=== PATIENT | female | born 1950 | race Caucasian/White ===

== ENCOUNTER 2018-05-23 08:31 | Inpatient (IN) ==
--- NOTE | 2018-04-25 12:10 | PAT Medication Instructions ---
Medication Instructions Date of Service April 25, 2018 Home Medications amlodipine 5 mg PO QAM hydrochlorothiazide 25 mg PO QAM meloxicam [Mobic] 15 mg PO DAILY PRN metoprolol succinate 50 mg PO QAM pantoprazole 40 mg PO DAILY PRN simvastatin 40 mg PO PM ASK your surgeon for instructions meloxicam [Mobic] 15 mg PO DAILY PRN DO NOT take the morning of surgery hydrochlorothiazide 25 mg PO QAM Take morning of surgery With a small sip of water, OTHERWISE NOTHING TO EAT OR DRINK AFTER MIDNIGHT: amlodipine 5 mg PO QAM metoprolol succinate 50 mg PO QAM pantoprazole 40 mg PO DAILY PRN (if needed) Take evening before surgery pantoprazole 40 mg PO DAILY PRN (if needed) simvastatin 40 mg PO PM Other Notes If you have any questions please call us at [phone] or [phone] or [phone] or [phone]
--- NOTE | 2018-04-25 12:13 | Anesthesiology Consultation ---
Date of Service April 25, 2018 Assessment & Plan (1) Encounter for pre-operative examination: Plan: - History of glidescope intubation= Left TKA= 03/16/11= unable to get CSF with SAB--> switched to GA; glidescope # 3 at [facility] Chart Review Chart Review: Acceptable Risk for Surgery and Patient seen in Pre Admission Testing Teaching & Discussion Pre-Anesthesia Teaching/Discussion Notes: Instructed NPO after midnight before surgery,except medications with 15 cc of water. Medication instructions provided according to the PAT guidelines. History Surgery Operation Date: 05/23/18 07:15 Proposed Procedures p Left Knee Poly Exchange - Daniel Paniagua DO Height/Weight Height: 5 ft 4 in Weight: 92.8 kg Allergies Allergy/AdvReac Type Severity Reaction Status Date / Time No Known Allergies Allergy Verified 04/13/18 09:46 Medications Home Medications Medication Instructions Recorded Confirmed Last Taken amlodipine 5 mg PO QAM 04/13/18 04/13/18 Unknown hydrochlorothiazide 25 mg PO QAM 04/13/18 04/13/18 Unknown meloxicam [Mobic] 15 mg PO DAILY PRN 04/13/18 04/13/18 Unknown metoprolol succinate 50 mg PO QAM 04/13/18 04/13/18 Unknown pantoprazole 40 mg PO DAILY PRN 04/13/18 04/13/18 Unknown simvastatin 40 mg PO PM 04/13/18 04/13/18 Unknown Past Medical History Medical History History of difficult intubation LEFT TKA= 03/16/11= unable to get CSF with SAB--> switched to GA; glidescope # 3 at [facility] Cancer SKIN GERD (gastroesophageal reflux disease) CONTROLLED (KNOWN FOOD TRIGGERS) High cholesterol Hypertension Obesity Past Surgical History Surgical History Hx laparoscopic cholecystectomy Hx of total knee replacement B/L Past Anesthesia History No Hx of Anesthesia Complications (EXCEPT PONV), Difficult Airway (LEFT TKA= unable to get CSF with SAB--> switched to GA; glidescope # 3 at [facility]) and No Family Hx of Anesthesia Complications Patient states no PONV after cholecystectomy in 2016 in which patient was given post-op zofran and promethazine which she states she had a good response to History of PONV Yes Motion Sickness Screening History of Motion Sickness: No Social History Smoking Status: Never smoker Hx Alcohol Use: No Hx Substance Use: No Exercise / Class Metabolic Activity II 4-5 Yardwork/Stairs/Walk up hill Review of Systems Reflux controlled. Patient denies chest pain, shortness of breath, dyspnea on exertion, cough, wheezing, palpitations. Physical Exam Vital Signs VITALS BP 134/81 P 97 TEMP 97.8 SP02 95%RA RESP 16 Full neck and c-spine range of motion. Full TMJ range of motion. TMD 2.5 finger breaths Mallampati Score 2 Dentition: partial on upper; missing molars on lower Lungs: clear throughout to auscultation Cardiac: regular rate and rhythm, no murmurs noted Spine: normal Carotid arteries: negative bruit Extremities: no edema Small chin. Testing Electrocardiogram Date: 04/25/18 Findings: + NSR @ (95) Chest X-Ray Date: 04/25/18 Findings: + cardiomegaly Cardiac silhouette is upper limits of normal in size, unchanged. Unchanged opacity of the right cardiophrenic angle suggests prominent epicardial fat pad. Stress Test Date: 08/21/15 Type: exercise "Probability of significant underlying CAD being present is low" at 97% MPHR. No significant EKG abnormalities during exercise. No significant chest discomfort. 6 METs. Laboratory Results 04/25/18 12:55 04/25/18 12:55 Blood Type O Positive 04/25/18 12:55 Antibody Screen NEGATIVE 04/25/18 12:55 PT 10.1 Seconds (9.0-12.0) 04/25/18 12:55 INR 1.0 (0.9-1.1) 04/25/18 12:55 APTT 25.5 Seconds (21.0-31.0) 04/25/18 12:55 Hemoglobin A1c 6.1 % (4.5-5.6) H 04/25/18 12:55 Urine Color Yellow 04/25/18 Unknown Urine Appearance Clear (Clear) 04/25/18 Unknown Urine pH 5.0 (4.5-7.5) 04/25/18 Unknown Ur Specific [place] 1.018 (1.000-1.030) 04/25/18 Unknown Urine Protein Negative (Negative) 04/25/18 Unknown Urine Glucose (UA) Negative (Negative) 04/25/18 Unknown Urine Ketones Negative (Negative) 04/25/18 Unknown Urine Nitrite Negative (Negative) 04/25/18 Unknown Ur Leukocyte Esterase Trace (Negative) H 04/25/18 Unknown Urine WBC (Auto) 1-5 /hpf (0-5) 04/25/18 Unknown Urine RBC (Auto) 0-4 /hpf (0-4) 04/25/18 Unknown U Hyaline Cast (Auto) 0 /lpf (0-5) 04/25/18 Unknown U Epithel Cells (Auto) 5-10 /lpf (0-5) H 04/25/18 Unknown Urine Bacteria (Auto) Negative (Negative) 04/25/18 Unknown
[2018-04-25 13:29] LABS: Basophils # (auto) 0.01 K/uL (0-0.2); Basophils % (auto) 0.1 %; Eosinophils # (auto) 0.08 K/uL (0-0.5); Eosinophils % (auto) 1.1 %; Hematocrit (blood only) 46.6 % (37-47); Hemoglobin 15.8 g/dL (12.0-16.0); Immature Granulocytes # (auto) 0.01 K/uL (0.00-0.02); Immature Granulocytes % (auto) 0.1 %; Lymphocytes # (auto) 1.71 K/uL (1.2-3.4); Lymphocytes % (auto) 22.9 %; Mean Corpuscular Hgb Conc 33.9 g/dL (32-36); Mean Corpuscular Volume 90.3 fL (80-100); Mean Platelet Volume 9.9 fL (7.4-10.4); Monocytes # (auto) 0.48 K/uL (0.11-0.59); Monocytes % (auto) 6.4 %; Neutrophils # (auto) 5.18 K/uL (1.4-6.5); Neutrophils % (auto) 69.4 %; Platelet Count 233 K/uL (130-400); RDW Coefficient of Variation 12.5 % (11.5-14.5); RDW Standard Deviation 41.7 fL (36.4-46.3); Red Blood Count 5.16 M/uL (4.2-5.4); White Blood Count 7.47 K/uL (4.8-10.8)
--- NOTE | 2018-04-25 13:35 | XRay Report ---
XR chest Pre-admission PA/Lat HISTORY: 67 years-old Female pat preoperative exam. No acute chest complaints COMPARISON: Chest radiograph 02/12/2011 TECHNIQUE: PA and lateral views of the chest FINDINGS: Cardiac silhouette is upper limits of normal in size, unchanged. Unchanged opacity of the right cardi ophrenic angle suggests prominent epicardial fat pad. There is no pneumothorax, pleural effusion, foc al airspace consolidation or overt pulmonary edema. Bones of the chest appear grossly intact. Surgical clips project over the upper abdomen. IMPRESSION: No acute process. The above report was generated using voice recognition software. It may contain grammatical, syntax o r spelling errors. Electronically signed by: Ancelmo Oliveira M.D. 04/25/2018 1:33 PM
[2018-04-25 13:50] LABS: Partial Thromboplastin Time 25.5 Seconds (21.0-31.0); Prothrombin Time 10.1 Seconds (9.0-12.0)
[2018-04-25 13:54] LABS: Appearance Urine Clear (Clear); Bacteria Urine Automated Negative (Negative); Bilirubin Urine Negative (Negative); Cast Urine Automated 0 /lpf (0-5); Color Urine Yellow; Glucose Urine UA Negative (Negative); Ketones Urine Negative (Negative); Leukocyte Esterase Urine Trace (Negative); Nitrite Urine Negative (Negative); Protein Urine Negative (Negative); Specific Gravity Urine 1.018 (1.000-1.030); Urobilinogen Urine Negative (Negative)
[2018-04-25 14:04] LABS: Estimated Average Glucose 128 mg/dl
[2018-04-25 14:25] LABS: Albumin Level 4.1 gm/dl (3.4-5.0); BUN Creatinine Ratio 20.1 (10-20); Calcium 9.8 mg/dl (8.5-10.1); Creatinine Clr Calc Pharmacy 49.8 ml/min; Est GFR (African American) 55.3; Est GFR (Non-African American) 47.7; Potassium 3.7 mmol/L (3.5-5.1)
--- NOTE | 2018-04-28 08:30 | History & Physical Report ---
Date of Service April 28, 2018 Assessment & Plan (1) Painful total knee replacement, left: Further care discussed with patient and at this point in time has failed conservative measures and would like to proceed with a left knee arthotomy and poly exchange. Plan on discharge will be home with home health physical therapy. DVT prophalaxis with TEDs, SCDs and will also place on aspirin 81 mg p.o. b.i.d. for a month postop. Patient will have follow up appointment in our office two weeks post op for staple/suture removal and re-evaluation. Patient otherwise has no other questions or concerns. History of Present Illness Chief Complaint: left knee pain Primary Care Provider: Stephan Cortez Ms Riggs is a 67 year old female that presents for pre op evaluation prior to left knee poly exchange scheduled at [facility] on 05/23/18. she underwent a left total knee replacement on 03/16/11 without issue. post op she initially did well , denies any injuries or trauma. over the past year she has noted increased pain and laxity. she underwent xrays as well as bone scan that do not show any type of loosening. after further discussion, she would like to proceed with left knee arthrotomy and poly exchange. Allergies Allergy/AdvReac Type Severity Reaction Status Date / Time No Known Allergies Allergy Verified 04/13/18 09:46 Home Medications Home Medications Medication Instructions Recorded Confirmed Type amlodipine 5 mg PO QAM 04/13/18 04/13/18 History hydrochlorothiazide 25 mg PO QAM 04/13/18 04/13/18 History meloxicam [Mobic] 15 mg PO DAILY PRN 04/13/18 04/13/18 History metoprolol succinate 50 mg PO QAM 04/13/18 04/13/18 History pantoprazole 40 mg PO DAILY PRN 04/13/18 04/13/18 History simvastatin 40 mg PO PM 04/13/18 04/13/18 History Past Med/Surg History Medical History History of difficult intubation LEFT TKA= 03/16/11= unable to get CSF with SAB--> switched to GA; glidescope # 3 at [facility] Cancer SKIN GERD (gastroesophageal reflux disease) CONTROLLED (KNOWN FOOD TRIGGERS) High cholesterol Hypertension Obesity Surgical History Hx laparoscopic cholecystectomy Hx of total knee replacement B/L Social History Current Living Situation: Significant Other Other Information That Helps Us Care for You: No Feels Safe at Home: Yes Safety Concerns: Feels Safe At This Time Smoking Status: Never smoker Hx Alcohol Use: No Hx Substance Use: No Beliefs That Will Affect Care: None Preferred Language: Thai Communication Ability: Effective Review of Systems All systems reviewed & are unremarkable except as noted in HPI & below Physical Exam 2 Constitutional: WD/WN, vitals as above no acute distress Respiratory: normal respiratory effort, lungs clear to auscultation Cardiovascular: RRR, no murmur, no edema Gastrointestinal (Abdomen): normal bowel sounds, soft, nontender, no hepatosplenomegaly Musculoskeletal: Left Knee: well healed surgical incision, no erythema or warmth, mild effusion. no tenderness, AROM 0/0/110, PROM 0/0/125. NVDI. calf soft and non tender. DP palpable. good quad tone, straight leg raise without lag. Results & Data Diagnostic Findings Left Knee: s/p left total knee replacement in anatomical alignment, no signs of loosening or wear.
[~2018-05-23 08:31] MED LIST: ACETAMINOPHEN 500 MG TAB PO SCH; BUPIVACAINE 0.5 % 5 MG/1 ML PF 10ML VIAL ONE; BUPIVACAINE/EPINEPHRINE 0.5% MPF 1:200,000 30 ML VIAL ONE; CEFAZOLIN 2000MG 2,000 MG/15 ML SYR IV SCH; CeleBREX 200 MG CAP PO SCH; DEXAMETHASONE SOD INJ 4 MG/ML VIAL ONE; FAMOTIDINE 20 MG TAB PO SCH; GABAPENTIN 300 MG PO SCH; ROPIVACAINE 0.5% HCL/PF 150 MG, BUPIVACAINE 0.5% MPF 30 ML, EPINEPHrine 30MG/30ML (OR U... INFIL SCH; TRANEXAMIC ACID 1,000 MG **IV Intra-op IV SCH; TRANEXAMIC ACID 1,000 MG **IV Pre-op IV SCH; dexAMETHasone 4 MG TAB PO SCH
[2018-05-23] MEDS: LR 500ML BOLUS, THEN 15ML/HR IV SCH ×4 (09:10→14:25)
[2018-05-23] MEDS ORDERED: fentaNYL citrate 100 MCG/2 ML VIAL ONE (09:13)
[2018-05-23] MEDS ORDERED: MIDAZOLAM HCL 1 MG/ML 2ML VIAL ONE ×3 (09:13→11:25)
[2018-05-23] MEDS ORDERED: PHENYLEPHRINE 100MCG/ML 5ML SYR ONE (09:17)
[2018-05-23] MEDS ORDERED: PROPOFOL IV EMULSION 10 MG/ML 20 ML VIAL IV ONE ×2 (09:17→09:21)
[2018-05-23] MEDS ORDERED: ePHEDrine sulfate 50 MG/ML SYR ONE (09:17)
[2018-05-23] MEDS ORDERED: LIDOCAINE HCL 2% 2 ML VIAL/AMP(20MG/ML) INFIL ONE (09:17)
--- NOTE | 2018-05-23 10:03 | History & Physical Bridge Note ---
Date of Service May 23, 2018 History & Physical Bridge Note I have examined the patient, reviewed the History & Physical and in the interval since the performance of the History & Physical I have noted the following changes of clinical significance: no changes noted
[2018-05-23] MEDS ORDERED: BACITRACIN INJ 50,000 UNIT VIAL ONE (10:35)
[2018-05-23] MEDS ORDERED: ORTHO JOINT ANESTHETIC ONE (10:35)
[2018-05-23] MEDS ORDERED: POVIDONE-IODINE OP SOLN 30 ML BTL ONE (10:35)
[2018-05-23] MEDS ORDERED: fentaNYL citrate 100 MCG/2 ML VIAL IV PRN (10:53)
[2018-05-23] MEDS ORDERED: ONDANSETRON INJ 2 MG/ML 2 ML VIAL IV PRN ×2 (10:53→14:13)
[2018-05-23] MEDS ORDERED: ATROPINE SULFATE 0.1 MG/ML 10ML SYR IV PRN (10:53)
[2018-05-23] MEDS ORDERED: ePHEDrine sulfate 50 MG/ML AMP IV PRN (10:53)
[2018-05-23] MEDS ORDERED: DEXAMETHASONE SOD INJ 4 MG/ML VIAL ONE (11:18)
[2018-05-23] MEDS ORDERED: ONDANSETRON INJ 2 MG/ML 2 ML VIAL ONE (11:18)
--- NOTE | 2018-05-23 11:55 | Operative Report ---
Post Operative Report Pre & Post Diagnosis Operation Date: 05/23/18 11:20 Pre-Op Diagnosis: LEFT KNEE JOINT PAIN Post-Op Diagnosis: LEFT KNEE JOINT PAIN Procedure Operation Date: 05/23/18 11:20 Actual Procedures p Left Knee Poly Exchange(Left) to a 3 4 x 15 the left poly-journey 1- Daniel Paniagua DO Surgeon Daniel Paniagua DO Bilingual Secretary Malcolm MCDOWELL Estimated Blood Loss 5 Findings Consistent with Post-Op Diagnosis Patient presents with moderate to significant ligamentous laxity both medial lateral compartments with 7 degree hyperextension of her knee with poly-wear aseptic with an aseptic in the preoperative workup including sed rate C- reactive protein and bone scan of the nose of loosening component and type of infectious process patient had progressive ligamentous laxity over the course of last several years with a journey 1 knee no evidence of loosening of tibial femoral or patellar components are noted at the time of surgery no evidence of present poly-wear with medial lateral collateral ligamentous laxity in both flexion extension and mid flexion Specimens Synovium and removed polyethylene tibia Drains Medium bore Hemovac Complications none Disposition Accompanied Patient To Recovery: No Disposition: Recovery Room Indications Patient presents with 7 degrees of hyperextension to her left knee with progressive increased laxity with medial lateral collateral ligaments in flexion extension mid flexion she not responsive to bracing physical therapy anti-inflammatories relative rest and presents for evaluation poly-change preoperative workup revealed to be notes of infectious etiology no evidence of tibial or femoral loosening or patellar loosening was noted Description of Procedure After proper prepping and draping the left lower extremity incision made over the previous extensor mechanism incision the medial parapatellar incision was made preoperative exam revealed to be evidence of market medial lateral collateral ligament laxity with 7 degrees of hyperextension intraoperative there was benign-appearing synovium and a limited synovectomy was performed the femoral component tibial component patellar component were all 1 skin check to make sure no evidence of loosening was noted which was none taken stable stasis was obtained to maintain subsequently the poly-was removed wound was irrigated with copious muscle sterile saline solution poly-was changed up sized to a size 15 gave excellent stability in both flexion extension mid flexion and corrected hyperextension to 0 degrees neutral subsequently the following poly-was brought on the field and the final poly-was placed the wound was irrigated but was closed over a medium bore Hemovac medial parapatellar was closed #1 Vicryl sutures with 2-0 Vicryl skin was closed with skin clips sterile compressive dressing was placed the patient was taken recovery in stable condition please note Malcolm MCDOWELL was necessary for prepping draping retraction wound closure some fascia subcu and skin was necessary for the case I attest to the content of the Intraoperative Record and any orders documented therein. Any exceptions are noted below.
[2018-05-23] MEDS ORDERED: PROMETHAZINE HCL 6.25 MG in SODIUM CHLORIDE 0.9% 50 ML IV ONE (13:00)
--- NOTE | 2018-05-23 13:07 | XRay Report ---
LEFT KNEE 2 VIEWS History: Left total knee arthroplasty. Degenerative arthritis. Postop. FINDINGS: The patient is status post a left total knee arthroplasty. The hardware is intact. No fract ure or dislocation. Skin marie and surgical drains are in place. IMPRESSION: Left total knee arthroplasty. No evidence for hardware complication. Electronically signed by: Arpit Salinas M.D. 05/23/2018 1:06 PM
--- NOTE | 2018-05-23 14:00 | Anesthesiology Progress Note ---
Date of Service May 23, 2018 Anesthesia Post Procedure Vital Signs Vital Signs: Temp Pulse Pulse Resp BP Pulse Ox 05/23/18 13:37 36.8 C 94 H 16 136/63 95 05/23/18 13:24 93 H 16 124/85 95 05/23/18 13:10 97 H 16 124/63 96 05/23/18 13:00 94 H 12 141/72 H 96 05/23/18 12:50 84 12 143/65 H 96 05/23/18 12:40 88 12 145/74 H 96 05/23/18 12:30 91 H 16 136/73 96 05/23/18 12:21 36.4 C L 96 H 19 138/68 96 05/23/18 09:14 36.5 C 66 20 141/80 H 96 Pain Intensity Left Knee: Pain Intensity: 0 Notes Mental Status: alert / awake / arousable Patient Amnestic to Procedure: Yes Nausea / Vomiting: improving with treatment Pain: adequately controlled Airway Patency, RR, SpO2: stable & adequate BP & HR: stable & adequate Hydration State: stable & adequate Neuraxial Anesthesia: was administered and sensory block is resolving Anesthetic Complications: no major complications apparent
[2018-05-23] MEDS ORDERED: PANTOprazole 40 MG TAB PO PRN (14:13)
[2018-05-23] MEDS ORDERED: METOCLOPRAMIDE HCL INJ 5 MG/ML 2 ML VIAL IV PRN (14:13)
[2018-05-23] MEDS ORDERED: BISACODYL 10 MG SUPP PR PRN (14:13)
[2018-05-23] MEDS ORDERED: NALOXONE HCL 0.4 MG/1 ML VIAL/CARP IV PRN (14:13)
[2018-05-23] MEDS ORDERED: ALUMINUM/MAGNESIUM SUSP 30 ML UDC PO PRN (14:13)
[2018-05-23] MEDS ORDERED: HYDROmorphone INJ 0.5 MG/0.5 ML SYR IV PRN (14:13)
[2018-05-23] MEDS ORDERED: MAGNESIUM HYDROXIDE SUSP 30 ML UDC PO PRN (14:13)
[2018-05-23] MEDS ORDERED: OXYCODONE HCL IR 5 MG TAB (IMMEDIATE RELEASE) PO PRN (14:13)
[2018-05-23] MEDS: SODIUM CHLORIDE 0.9% 1000ML 1,000 ML IV SCH (16:20)
[2018-05-23] MEDS: CEFAZOLIN 2000MG 2,000 MG/15 ML SYR IV SCH (19:26)
[2018-05-23] MEDS ORDERED: SENNA 8.6 MG TAB PO SCH (21:00)
[2018-05-23] MEDS ORDERED: SIMVASTATIN 40 MG TAB PO SCH (21:00)
[2018-05-23] MEDS: DOCUSATE SODIUM 100 MG CAP PO SCH (21:12)
[2018-05-23] MEDS: ASPIRIN 81 MG ECTAB PO SCH (21:12)
[2018-05-23] MEDS: ACETAMINOPHEN 500 MG TAB PO SCH (21:13)
[2018-05-24] MEDS: CEFAZOLIN 2000MG 2,000 MG/15 ML SYR IV SCH (03:53)
[2018-05-24] MEDS: ACETAMINOPHEN 500 MG TAB PO SCH (05:22)
[2018-05-24] MEDS: SODIUM CHLORIDE 0.9% 1000ML 1,000 ML IV SCH (06:54)
[2018-05-24 07:17] LABS: Hematocrit (blood only) 40.1 % (37-47); Hemoglobin 13.3 g/dL (12.0-16.0); Mean Corpuscular Hgb Conc 33.2 g/dL (32-36); Mean Corpuscular Volume 90.9 fL (80-100); Mean Platelet Volume 10.1 fL (7.4-10.4); Platelet Count 210 K/uL (130-400); RDW Coefficient of Variation 13.1 % (11.5-14.5); RDW Standard Deviation 43.4 fL (36.4-46.3); Red Blood Count 4.41 M/uL (4.2-5.4); White Blood Count 18.51 K/uL (4.8-10.8)
[2018-05-24 07:44] LABS: BUN Creatinine Ratio 18.2 (10-20); Calcium 9.2 mg/dl (8.5-10.1); Creatinine Clr Calc Pharmacy 41.9 ml/min; Est GFR (African American) 43.4; Est GFR (Non-African American) 37.5; Potassium 3.8 mmol/L (3.5-5.1)
[2018-05-24] MEDS: DOCUSATE SODIUM 100 MG CAP PO SCH (08:25)
[2018-05-24] MEDS: ASPIRIN 81 MG ECTAB PO SCH (08:25)
[2018-05-24] MEDS ORDERED: AMLODIPINE BESYLATE 5 MG TAB PO SCH (09:00)
[2018-05-24] MEDS ORDERED: MULTIVITAMIN TAB PO SCH (09:00)
[2018-05-24] MEDS ORDERED: METOPROLOL SUCC 50MG EXT REL TAB PO SCH (09:00)
--- NOTE | 2018-05-24 09:45 | Orthopedic Progress Note ---
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 isolated polyethylene liner exchange: POD #1 s/p poly exchange left knee pt/ot dvt proph with festus/scd/asa plan for d/c home with HHPT x 2 weeks f/u in our office in 2 weeks silverlon dressing pull hemovac and dressing change prior to d/c Subjective POD #1 s/p Left Knee Poly Exchange Review of Systems All systems reviewed & are unremarkable except as noted in HPI & below Constitutional: no fever, no chills, no sweats, no body aches and no weakness Respiratory: no cough Cardiovascular: no chest pain and no dyspnea Physical Exam 2 Vital Signs (Past 24 Hours): Last Vital Signs Temp 36.9 C 05/24/18 07:13 Pulse 69 05/24/18 07:13 Resp 18 05/24/18 07:13 BP 135/71 05/24/18 07:13 Pulse Ox 94 05/24/18 07:13 Musculoskeletal: Left Leg- neurovascularlly intact, calf SNT, negative penny sign. DP palpable, able to wiggle toes/ankle movement without difficulty. dressing clean dry and intact. Vital Signs Temp 36.9 C 05/24/18 07:13 Pulse 69 05/24/18 07:13 Resp 18 05/24/18 07:13 BP 135/71 05/24/18 07:13 Pulse Ox 94 05/24/18 07:13 Intake & Output 05/23/18 05/24/18 05/24/18 18:59 06:59 18:59 Intake Total 1950 / 1950 1200 / 1200 Output Total 980 / 980 950 / 950 Balance 970 / 970 250 / 250 Weight 93.168 kg Intake: IV 710 / 710 1000 / 1000 Lr 1,000 ml @ 999 mls/hr IV . 600 / 600 Q1H1M JAYME Rx#: [id number] Nss 1000ML 1,0 00 ml @ 100 mls/ 1000 / 1000 hr IV .Q10H SC H Rx#:[id number] Cyklokapron 1, 000 mg In Sodium 110 / 110 Chloride 100 m l @ 660 mls/hr IV TODAY@0600 JAYME Rx#:[id number] IV Perioperative 1000 / 1000 Oral 240 / 240 200 / 200 Output: Urine 950 / 950 800 / 800 Estimated Blood Loss 5 / 5 Drain Output 150 / 150 Left Knee Hemo vac 150 / 150 Other: # Unmeasured Voi ds 1 Results & Data Laboratory Results Laboratory Results WBC 18.51 K/uL (4.8-10.8) H 05/24/18 07:01 RBC 4.41 M/uL (4.2-5.4) 05/24/18 07:01 Hgb 13.3 g/dL (12.0-16.0) 05/24/18 07:01 Hct 40.1 % (37-47) 05/24/18 07:01 MCV 90.9 fL (80-100) 05/24/18 07:01 MCH 30.2 pg (25-34) 05/24/18 07:01 MCHC 33.2 g/dL (32-36) 05/24/18 07:01 RDW Std Deviation 43.4 fL (36.4-46.3) 05/24/18 07:01 RDW Coeff of [place] 13.1 % (11.5-14.5) 05/24/18 07:01 Plt Count 210 K/uL (130-400) 05/24/18 07:01 MPV 10.1 fL (7.4-10.4) 05/24/18 07:01 Immature Gran % (Auto) 0.1 % 04/25/18 12:55 Neut % (Auto) 69.4 % 04/25/18 12:55 Lymph % (Auto) 22.9 % 04/25/18 12:55 [place] % (Auto) 6.4 % 04/25/18 12:55 Eos % (Auto) 1.1 % 04/25/18 12:55 Baso % (Auto) 0.1 % 04/25/18 12:55 Immature Gran # (Auto) 0.01 K/uL (0.00-0.02) 04/25/18 12:55 Neut # (Auto) 5.18 K/uL (1.4-6.5) 04/25/18 12:55 Lymph # (Auto) 1.71 K/uL (1.2-3.4) 04/25/18 12:55 [place] # (Auto) 0.48 K/uL (0.11-0.59) 04/25/18 12:55 Eos # (Auto) 0.08 K/uL (0-0.5) 04/25/18 12:55 Baso # (Auto) 0.01 K/uL (0-0.2) 04/25/18 12:55 PT 10.1 Seconds (9.0-12.0) 04/25/18 12:55 INR 1.0 (0.9-1.1) 04/25/18 12:55 APTT 25.5 Seconds (21.0-31.0) 04/25/18 12:55 PTT Ratio 1.0 04/25/18 12:55 Sodium 139 mmol/L (136-145) 05/24/18 07:01 Potassium 3.8 mmol/L (3.5-5.1) 05/24/18 07:01 Chloride 109 mmol/L (98-107) H 05/24/18 07:01 Carbon Dioxide 25 mmol/L (21-32) 05/24/18 07:01 Anion Gap 5.0 (3-11) 05/24/18 07:01 BUN 26 mg/dl (7-18) H 05/24/18 07:01 Creatinine 1.44 mg/dl (0.6-1.2) H 05/24/18 07:01 Est Cr Clr Drug Dosing 41.9 ml/min 05/24/18 07:01 Est GFR ( Amer) 43.4 05/24/18 07:01 Est GFR (Non-Af Amer) 37.5 05/24/18 07:01 BUN/Creatinine Ratio 18.2 (10-20) 05/24/18 07:01 Glucose 137 mg/dl (70-99) H 05/24/18 07:01 Estimat Average Glucose 128 mg/dl 04/25/18 12:55 Hemoglobin A1c 6.1 % (4.5-5.6) H 04/25/18 12:55 Calcium 9.2 mg/dl (8.5-10.1) 05/24/18 07:01 Albumin 4.1 gm/dl (3.4-5.0) 04/25/18 12:55 Urine Color Yellow 04/25/18 Unknown Urine Appearance Clear (Clear) 04/25/18 Unknown Urine pH 5.0 (4.5-7.5) 04/25/18 Unknown Ur Specific [place] 1.018 (1.000-1.030) 04/25/18 Unknown Urine Protein Negative (Negative) 04/25/18 Unknown Urine Glucose (UA) Negative (Negative) 04/25/18 Unknown Urine Ketones Negative (Negative) 04/25/18 Unknown Urine Blood Negative (Negative) 04/25/18 Unknown Urine Nitrite Negative (Negative) 04/25/18 Unknown Urine Bilirubin Negative (Negative) 04/25/18 Unknown Urine Urobilinogen Negative (Negative) 04/25/18 Unknown Ur Leukocyte Esterase Trace (Negative) H 04/25/18 Unknown Urine WBC (Auto) 1-5 /hpf (0-5) 04/25/18 Unknown Urine RBC (Auto) 0-4 /hpf (0-4) 04/25/18 Unknown U Hyaline Cast (Auto) 0 /lpf (0-5) 04/25/18 Unknown U Epithel Cells (Auto) 5-10 /lpf (0-5) H 04/25/18 Unknown Urine Bacteria (Auto) Negative (Negative) 04/25/18 Unknown Blood Type O Positive 04/25/18 12:55 Antibody Screen NEGATIVE 04/25/18 12:55 Diagnostic Findings LEFT KNEE 2 VIEWS FINDINGS: The patient is status post a left total knee arthroplasty. The hardware is intact. No fracture or dislocation. Skin marie and surgical drains are in place.
--- NOTE | 2018-05-26 14:55 | Discharge Summary ---
DISCHARGE DIAGNOSIS: Left total knee arthroplasty instability. SECONDARY DIAGNOSES: History of skin carcinoma, gastroesophageal reflux disease, hypercholesterolemia, hypertension, obesity. CONSULTS: None. COMPLICATIONS: None. PROCEDURES: Left total knee arthroplasty, polyethylene bearing change by Dr. Paniagua on 05/23/2018. BRIEF HISTORY: As dictated in the history and physical. HOSPITAL SUMMARY: The patient was admitted on the above-noted date and had the above-noted surgery performed which she tolerated well. On first postoperative day, she had no complaints and was comfortable. Pain was controlled. Vital signs were stable. She was afebrile. Neurovascular was intact. Calves were soft, nontender. Dressings were clean, dry and intact. Toes were mobile and she was started on physical therapy protocol and continued on DVT prophylaxis and pain management. She was progressing well with her physical therapy and it was felt she could be discharged to home with home health services on 05/24/2018. For further review, please see chart. LABORATORY AND X-RAY DATA: As per chart. DISCHARGE INSTRUCTIONS: The patient was discharged to home in satisfactory condition on 05/24/2018 with home health services. Diet: Regular. Activity: Weightbearing as tolerated, left lower extremity with a walker. Follow TK instruction sheets and special care instructions as noted. Follow up with Dr. Paniagua in 2 weeks. The patient is to call for appointment if one has not made for you. DISCHARGE MEDICATIONS: Acetaminophen 1000 mg p.o. q. 8 hours, aspirin 81 mg p.o. b.i.d., cefadroxil 500 mg p.o. b.i.d., oxycodone 5-10 mg p.o. q. 4 hours p.r.n. Resume home meds as listed.
== END 2018-05-24 12:21 | disposition home or self-care (01) | DRG 489 ==
LOC: ASU 08:31 → 3E 12:32